=== PATIENT | male | born 1970 | race African-American/Black ===

== ENCOUNTER 2017-08-14 10:47 | Emergency (ER) | payer MEDICAID ==
[~2017-08-14] VITALS: Ht 177.8 cm; Wt 91.0 kg
[2017-08-14 11:45] VITALS: BP 148/90
== END 2017-08-14 14:11 | disposition left against medical advice (07) ==
LOC: ER 14:03
DX: H57.12 Ocular pain, left eye (principal); Z53.21 Procedure and treatment not carried out due to patient leaving prior to being seen by health care provider